=== PATIENT | male | born 1955 | race Caucasian/White ===

== ENCOUNTER → 2018-02-14 | Outpatient (CLI) | payer OTHER ==
[~2018-02-14] MED LIST: NOHOMEMEDICATIONS
--- NOTE | 2018-02-14 15:24 | EXE ---
[place] [address] STRESS ECHOCARDIOGRAM Name: ABBI PABON Room: [facility]#: [id number] Admission: 02/14/18 Attend Phys: Huseyin Hurtado, Discharge: Date of : 53 Date of Service: 02/14/18 1524 Report #: [id number] THIS REPORT FOR: //name// APPROVED REPORT Study performed: 02/14/2018 13:17:42 Exam: Stress Echocardiogram Indication: Screening for CAD Patient Location: Out-Patient Stress Nurse: Aileen Hawkins RN Supervising Physician: Derik Harvey MD Status: routine Ht: 5 ft 10 in HR: 78 bpm BP: 124/76 mmHg Rhythm: NSR Medical History Cardiac Risk Factors: Smoking Procedure The patient underwent an Exercise Stress Test using the Luigi Protocol. Blood pressure, heart rate, and EKG were monitored. An Echocardiogram was performed by traffic signal technician in four stages in quad fashion. At peak stress, four selected images were obtained and placed side by side with resting images for comparison. Stress Test Details Stress Test: Exercise stress testing was performed using a Luigi protocol. HR Resting HR: 78 bpm Max Heart Rate (APMHR): 157 bpm Max HR Achieved: 160 bpm Target HR (85% APMHR): 133 bpm % of APMHR: 101 Recovery HR: 98 bpm HR response to stress: Normal HR response to stress BP Resting BP: 124/76 mmHg Max BP: 172/63 mmHg Recovery BP: 123/67 mmHg ECG Resting ECG: [place] [address] STRESS ECHOCARDIOGRAM Name: ABBI PABON [id number] Admission: 02/14/18 Attend Phys: Huseyin Hurtado, Discharge: Date of : 53 Date of Service: 02/14/18 1524 Report #: [id number] Stress ECG: Sinus Rhythm ST Change: Upsloping ST depression Maximum ST Deviation: 0.5 mm Recovery ECG: Sinus Rhythm Recovery ST Change: Normal Clinical Stress Symptoms: Leg Fatigue Exercise duration: 9 min 45 sec Highest Stage Achieved: Stage 4: 4.2 mph at 16% grade. Exercise capacity: 11.34 METs Stress ECG Conclusion neg ecg Pre-Stress Echo The resting Echocardiogram showed normal left ventricular contractility with an estimated Ejection Fraction of about 50-55%. Post-Stress Echo LV chamber size decreases, LV ejection fraction increases, no new wall motion abnormalities are seen. Conclusion Clinical Response: Non-ischemic Exercise Capacity: Superior Stress ECG Response: Non-ischemic Stress Echo Images: Non-ischemic Negative stress echo for ischemia Other Information Study Quality: Good <Conclusion> Negative stress echo for ischemia <ELECTRONICALLY SIGNED> By: Derik Harvey MD, FAC 02/14/18 1524 1524 1524 Derik Harvey MD, [facility] /INF
== END ==
LOC: M.CRD 12:48
DX: I25.10 Atherosclerotic heart disease of native coronary artery without angina pectoris (principal); R07.2 Precordial pain

== ENCOUNTER → 2018-04-05 | Outpatient (CLI) | payer OTHER | LOC: M.CT 13:53 | DX: Z13.6 Encounter for screening for cardiovascular disorders (principal) ==